=== PATIENT | male | born 1985 | race Caucasian/White ===

== ENCOUNTER 2017-05-10 21:12 | Emergency (ER) | payer BC ==
[~2017-05-10] VITALS: Ht 177.8 cm; Wt 95.3 kg
[2017-05-10] MEDS ORDERED: LEXAPRO (21:44)
[2017-05-10] MEDS ORDERED: OMPRAZOLE (21:44)
[2017-05-10] MEDS ORDERED: WELLBUTRIN (21:44)
--- NOTE | 2017-05-10 22:30 | NUR ---
Patient discharged to home in stable conditon. Written and verbal after care instructions given. Patient verbalizes understanding of instructions.
== END 2017-05-10 22:31 | disposition home or self-care (01) ==
LOC: ER 21:12
DX: J09.X2 Influenza due to identified novel influenza A virus with other respiratory manifestations (principal); K21.9 Gastro-esophageal reflux disease without esophagitis
CPT/HCPCS: 87400; A4663